=== PATIENT | male | born 1990 | race American Indian/Alaskan Native ===

== ENCOUNTER 2017-05-11 17:39 | Emergency (ER) | payer MEDICAID, OTHER ==
[2017-05-11] MEDS ORDERED: Sodium Chloride 0.9% 1,000 ML IV STA (18:03)
--- NOTE | 2017-05-11 18:04 | ED PDOC ---
Arrival/HPI - General Chief Complaint: Flu-like Symptoms Time Seen by Provider: 05/11/17 17:59 Historian: Patient - History of Present Illness Narrative History of Present Illness (Text): 05/11/17 18:00 26 y/o male, no significant pmh, nkda, c/o coughing/fever/bodyache x 2 days. 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 Pt. has no taken any antipyretic or analgesic for the past 8 hours. Past Medical History - Provider Review Nursing Documentation Reviewed: Yes - Infectious Disease Hx of Infectious Diseases: None - Psychiatric Hx Substance Use: No - Anesthesia Hx Anesthesia: No Family/Social History - Physician Review Nursing Documentation Reviewed: Yes Family/Social History: Unknown Family HX Smoking Status: Unknown If Ever Smoked Hx Alcohol Use: No Hx Substance Use: No Allergies/Home Meds Allergies/Adverse Reactions: Allergies No Known Allergies Allergy (Verified 05/11/17 17:53) Review of Systems - Review of Systems Constitutional: Fatigue, Fevers Eyes: absent: Vision Changes ENT: absent: Hearing Changes Respiratory: Cough, Sputum. absent: SOB, Wheezing Cardiovascular: absent: Chest Pain Gastrointestinal: absent: Abdominal Pain, Diarrhea, Nausea, Vomiting Genitourinary Male: absent: Dysuria Musculoskeletal: absent: Arthralgias, Back Pain Skin: absent: Rash, Pruritis Neurological: absent: Headache Psychiatric: absent: Anxiety, Depression Physical Exam Vital Signs Reviewed: Yes Vital Signs Temp Pulse Resp BP Pulse Ox 05/11/17 20:48 99.3 F 05/11/17 19:25 101.4 F H 95 H 18 135/93 H 98 05/11/17 17:49 102.2 F H 108 H 20 139/100 H 98 Temperature: Febrile Blood Pressure: Hypertensive Pulse: Tachycardic Respiratory Rate: Normal Appearance: Positive for: Non-Toxic, Uncomfortable Pain Distress: Mild Mental Status: Positive for: Alert and Oriented X 3 - Systems Exam Head: Present: Atraumatic, Normocephalic Pupils: Present: PERRL Extroacular Muscles: Present: EOMI Conjunctiva: Present: Normal Mouth: Present: Moist Mucous Membranes Pharnyx: No: ERYTHEMA, EXUDATE, TONSILS ENLARGED, Muffled/Hoarse Voice Nose (External): Present: Atraumatic. No: Abrasion, Contusion Nose (Internal): Present: Normal Inspection, No Active Bleeding. No: Rhinorrhea , Septal Hematoma, Epistaxis Neck: Present: Normal Range of Motion. No: Meningeal Signs, MIDLINE TENDERNESS , Paraspinal Tenderness, Lymphadenopathy, Trachea Midline Respiratory/Chest: Present: Clear to Auscultation, Good Air Exchange, Rhonchi (+ rhonchi). No: Respiratory Distress, Accessory Muscle Use, Retracting Cardiovascular: Present: Regular Rate and Rhythm, Normal S1, S2. No: Murmurs Abdomen: Present: Normal Bowel Sounds. No: Tenderness, Distention, Peritoneal Signs Back: Present: Normal Inspection Upper Extremity: Present: Normal Inspection. No: Cyanosis, Edema Lower Extremity: Present: Normal Inspection. No: Edema Neurological: Present: GCS=15, Speech Normal, Motor Func Grossly Intact, Gait Normal, Memory Normal Skin: Present: Warm, Dry, Normal Color. No: Rashes Psychiatric: Present: Alert, Oriented x 3, Normal Insight, Normal Concentration Medical Decision Making ED Course and Treatment: 05/11/17 18:23 -labs/rapid flu -cxr -IVF/tyleno/motrin -observe and reassess 05/11/17 21:44 -Labs are non-significant except elevation of LFT which the patient has no abdominal/flank or chest pain, advised to stop all tylenol and alcohol with GI and pmd follow up. -Rapid flu is negative but clinical suspicious is high -UA show no UTI -Chest xray show no acute findings. -Tamiflu and azithromycin ordered. -Discharge home with tamiflu, azithromycin, motrin, tessalon, stay hydrated, follow up with your own pmd and GI within 2 days, outpatient follow up about your liver enzyme, return to the ER for any new or worsening signs or symptoms. - Lab Interpretations Lab Results: 05/11/17 18:42 05/11/17 18:42 Lab Results 05/11/17 21:15: Urine Color Yellow, Urine Appearance Clear, Urine pH 7.5, Ur Specific [place] 1.020, Urine Protein Negative, Urine Glucose (UA) Negative, Urine Ketones Negative, Urine Blood Negative, Urine Nitrate Negative, Urine Bilirubin Negative, Urine Urobilinogen 1.0 H, Ur Leukocyte Esterase Negative 05/11/17 18:42: Sodium 142, Potassium 4.2, Chloride 102, Carbon Dioxide 28, Anion Gap 15, BUN 10, Creatinine 1.0, Est GFR ( Amer) > 60, Est GFR (Non- Af Amer) > 60, Random Glucose 84, Calcium 9.5, Total Bilirubin 0.5, AST 246 H, ALT 123 H, Alkaline Phosphatase 85, Total Protein 7.9, Albumin 4.6, Globulin 3.3 , Albumin/Globulin Ratio 1.4 05/11/17 18:42: Influenza Typ A,B (EIA) Negative for flu a/b 05/11/17 18:42: WBC 7.8, RBC 4.89, Hgb 13.4 L, Hct 39.3 L, MCV 80.4, MCH 27.4, MCHC 34.1, RDW 12.6, Plt Count 212, MPV 11.6 H, Gran % 71.1 H, Lymph % (Auto) 11.2 L, [place] % (Auto) 13.2 H, Eos % (Auto) 4.1, Baso % (Auto) 0.4, Gran # 5.55, Lymph # (Auto) 0.9 L, [place] # (Auto) 1.0 H, Eos # (Auto) 0.3, Baso # (Auto) 0.03 - RAD Interpretation Radiology Orders: 05/11/17 18:03 CHEST TWO VIEWS (PA/LAT) [RAD] Stat FINDINGS: Lungs: There is no confluent infiltrate. No pulmonary edema. Pleural space: No pleural effusions. No pneumothorax. Heart: The cardiac silhouette is at the upper limits of normal in size. Mediastinum: Unremarkable. Bones/joints: No visualized acute osseous abnormality. IMPRESSION: 1. There is no confluent infiltrate. Master Control Technician: Radiologist - Medication Orders Current Medication Orders: Discontinued Medications Acetaminophen (Tylenol 325mg Tab) 325 mg PO STAT STA Stop: 05/11/17 18:04 Last Admin: 05/11/17 18:45 Dose: 325 mg Sodium Chloride (Sodium Chloride 0.9%) 1,000 mls @ 999 mls/hr IV .Q1H1M STA Stop: 05/11/17 19:03 Last Admin: 05/11/17 18:45 Dose: 999 mls/hr eMAR Start Stop Document 05/11/17 18:45 GMD (Rec: 05/11/17 18:45 GMD [facility] [place]-[id number]) Intravenous Solution Start Date 05/11/17 Start Time 18:45 End Date 05/11/17 End time 19:45 Total Infusion Time 60 Ibuprofen (Motrin Tab) 800 mg PO STAT STA Stop: 05/11/17 18:04 Last Admin: 05/11/17 18:45 Dose: 800 mg MAR Pain/Vitals Document 05/11/17 18:45 GMD (Rec: 05/11/17 18:45 GMD [facility] [id number]) Pain Reassessment Is This A Pain ReAssessment? No - PA / BANKING ATTORNEY / Resident Statement / has reviewed & agrees with the documentation as recorded. Disposition/Present on Arrival - Present on Arrival Any Indicators Present on Arrival: No History of DVT/PE: No History of Uncontrolled Diabetes: No Urinary Catheter: No History of Decub. Ulcer: No History Surgical Site Infection Following: None - Disposition Have Diagnosis and Disposition been Completed?: Yes Diagnosis: Elevated LFTs, Flu-like symptoms, URI (upper respiratory infection) Disposition: HOME/ ROUTINE Disposition Time: 18:23 Patient Plan: Discharge Patient Problems: Current Active Problems Problem Status Onset Elevated LFTs Acute Condition: IMPROVED Additional Instructions: -Discharge home with tamiflu, azithromycin, motrin, tessalon, stay hydrated, follow up with your own pmd and GI within 2 days, outpatient follow up about your liver enzyme, return to the ER for any new or worsening signs or symptoms. Prescriptions: Azithromycin 250 mg PO DAILY #4 tab Benzonatate [Tessalon Per[place]] 100 mg PO TID PRN #30 sgl PRN Reason: Other Ibuprofen [Motrin] 600 mg PO QID PRN #30 tab PRN Reason: Other Oseltamivir Phosphate [Tamiflu] 75 mg PO BID #10 capsule Referrals: PCP,NO [Primary Care Provider] - Follow up with primary Wilner Sadler MD [Staff Provider] - Follow up with primary [facility] at [facility] [place] [Outside] - Follow up with primary Forms: WORK NOTE
[2017-05-11 18:58] LABS: BASO # 0.03 K/mm3 (0.0-2.0); BASO % 0.4 % (0.0-3.0); EOS # 0.3 (0.0-0.7); EOS % 4.1 % (1.5-5.0); GRAN # 5.55 (1.4-6.5); GRAN % 71.1 % (50.0-68.0); HEMOGLOBIN 13.4 g/dL (14.0-18.0); LYMPH # 0.9 (1.2-3.4); LYMPH % 11.2 % (22.0-35.0); MEAN CELL VOLUME 80.4 fl (80.0-105.0); MEAN CORPUSCULAR HEMOGLOBIN 27.4 pg (25.0-35.0); MEAN CORPUSCULAR HGB CONC 34.1 g/dl (31.0-37.0); MEAN PLATELET VOLUME 11.6 fl (7.0-11.0); MONO % 13.2 % (1.0-6.0); RBC 4.89 10^6/uL (3.5-6.1); RED CELL DISTRIBUTION WIDTH 12.6 % (11.5-14.5); WHITE BLOOD COUNT 7.8 10^3/ul (4.5-11.0)
[2017-05-11 19:10] LABS: ALB/GLOB RATIO 1.4 (1.1-1.8); ALBUMIN 4.6 g/dL (3.0-4.8); CALCIUM 9.5 mg/dL (8.4-10.5); GFR AFRICAN-AMERICAN > 60; GFR NON-AFRICAN AMERICAN > 60
[2017-05-11 19:27] VITALS: RESP 18
[2017-05-11 19:33] LABS: ALT/SGPT 123 U/L (7-56); AST/SGOT 246 U/L (17-59); BLOOD UREA NITROGEN 10 mg/dL (7-21)
--- NOTE | 2017-05-11 20:38 | RAD ---
EXAM: XR Chest, 2 Views EXAM DATE/TIME: 05/11/2017 6:03 PM CLINICAL HISTORY: The patient age is 26 years old and is male; Signs and symptoms; Cough and fever; Symptoms not specified; Additional info: Cough/fever/fatigue Facility exam id and description: Rad chest 2 chest two views (pa/lat) TECHNIQUE: Frontal and lateral views of the chest. COMPARISON: No relevant prior studies available. FINDINGS: Lungs: There is no confluent infiltrate. No pulmonary edema. Pleural space: No pleural effusions. No pneumothorax. Heart: The cardiac silhouette is at the upper limits of normal in size. Mediastinum: Unremarkable. Bones/joints: No visualized acute osseous abnormality. IMPRESSION: 1. There is no confluent infiltrate.
[2017-05-11 20:48] VITALS: TEMP 99.3
[2017-05-11 21:35] LABS: PH,URINE 7.5 (4.7-8.0); URINE BILIRUBIN NEGATIVE (NEGATIVE); URINE BLOOD NEGATIVE (NEGATIVE); URINE GLUCOSE (UA) NEGATIVE (NEGATIVE); URINE LEUKOCYTE ESTERASE NEGATIVE Leu/uL (NEGATIVE); URINE NITRATE NEGATIVE (NEGATIVE); URINE PROTEIN NEGATIVE mg/dL (<30 mg/dL)
[2017-05-11 21:37] LABS: URINE APPEARANCE CLEAR (CLEAR); URINE COLOR YELLOW (YELLOW)
[2017-05-11 22:21] VITALS: BP 126/83; PULSE 86; O2SAT 99
== END 2017-05-11 22:21 | disposition home or self-care (01) ==
LOC: ED 17:39
DX: J06.9 Acute upper respiratory infection, unspecified (principal); J11.1 Influenza due to unidentified influenza virus with other respiratory manifestations; R79.89 Other specified abnormal findings of blood chemistry
CPT/HCPCS: 71046; 80053; 81003; 85025; 87804; 96360; 99284; J7040